=== PATIENT | male | born 1975 | race Caucasian/White ===

== ENCOUNTER 2016-08-13 01:51 | Emergency (ER) | payer SELFPAY ==
[2016-08-13] MEDS ORDERED: HYDROCODONE/ACETAMINOPHEN 5/325MG TABLET ONE (02:15)
[2016-08-13] MEDS ORDERED: CLINDAMYCIN HCL 150 MG CAPSULE ONE (02:15)
== END 2016-08-13 02:30 | disposition home or self-care (01) ==
LOC: ED 01:51
DX: L03.011 Cellulitis of right finger (principal); F17.210 Nicotine dependence, cigarettes, uncomplicated
CPT/HCPCS: 99283 ×2; A9270 ×2